=== PATIENT | male | born 1950 | race African-American/Black ===

== ENCOUNTER 2017-11-27 12:13 | Emergency (ER) | payer OTHER ==
[~2017-11-27] VITALS: Ht 175.3 cm; Wt 82.0 kg
[2017-11-27] MEDS ORDERED: LIDOCAINE HCL 1% 20ML VIAL (Pyxis) INJ MC ONE (12:30)
[2017-11-27] MEDS ORDERED: TETANUS, DIPHTHERIA, PERTUSSIS VAC/PF 0.5ML (>7YR OLD) IM ONE ×2 (12:30→17:15)
[2017-11-27] MEDS ORDERED: BACITRACIN ZINC OINT UDPKT TOP ONE ×2 (12:30→16:45)
[2017-11-27] MEDS ORDERED: LIDOCAINE HCL/PF 1% 10 MG/ML 5ML VIAL IJ ONE (16:45)
[2017-11-27 17:15] VITALS: BP 168/95
== END 2017-11-27 17:25 | disposition home or self-care (01) ==
LOC: ER 12:58
DX: L02.414 Cutaneous abscess of left upper limb (principal); I10 Essential (primary) hypertension; E11.9 Type 2 diabetes mellitus without complications; F12.10 Cannabis abuse, uncomplicated
CPT/HCPCS: 10060; 90471; 90715; 99283; J3490